=== PATIENT | female | born 1950 | race Caucasian/White ===

== ENCOUNTER 2024-03-12 06:06 | Day surgery (SDC) | payer MEDICARE, BC ==
[2024-03-11 10:54] LABS: BASOPHILS # (AUTO) 0.1 X10'3 (0-0.2); BASOPHILS % (AUTO) 0.6 % (0-1); EOSINOPHILS # (AUTO) 0.1 X10'3 (0-0.9); HEMATOCRIT 41.1 % (35.0-45.0); HEMOGLOBIN 14.3 g/dl (12.0-16.0); LYMPHOCYTES # (AUTO) 1.9 X10'3 (1.1-4.8); LYMPHOCYTES % (AUTO) 24.2 % (21-51); MEAN CORPUSCULAR HEMOGLOBIN 33.5 PG (27.0-31.0); MEAN CORPUSCULAR HGB CONC 34.7 g/dL (33.0-36.5); MEAN CORPUSCULAR VOLUME 96.6 FL (78-98); MONOCYTES # (AUTO) 0.7 X10'3 (0-0.9); NEUTROPHILS # (AUTO) 5.2 X10'3 (1.8-7.7); NEUTROPHILS % (AUTO) 65.2 % (42-75); PLATELET COUNT 203 X10'3 (140-440); RED BLOOD COUNT 4.26 X10'6 (4.20-5.60); RED CELL DISTRIBUTION WIDTH 12.5 % (11.5-14.5)
[2024-03-11 11:06] LABS: ALBUMIN 3.6 G/DL (3.4-5.0); ANION GAP 6 (8-16); APTT 24 SECONDS (22-32); BLOOD UREA NITROGEN 14 MG/DL (7-18); BUN/CREATININE RATIO 16.9 (10.0-20.0); CALCIUM 9.2 MG/DL (8.5-10.1); CHLORIDE 107 MMOL/L (99-107); CREATININE 0.83 MG/DL (0.40-0.90); GLUCOSE 94 MG/DL (70-104); POTASSIUM 4.1 MMOL/L (3.5-5.1); PROTHROMBIN TIME 10.9 SECONDS (9.0-12.0); SODIUM 142 MMOL/L (135-145); TOTAL CARBON DIOXIDE 29.4 MMOL/L (24-32); eGFR 67 ML/MIN
[2024-03-12] VITALS (16 sets, daily range): BP systolic 114–140; BP diastolic 54–70; PULSE 52–74; RESP 10–12; TEMP 98.2; O2SAT 95–100
[~2024-03-12] VITALS: Ht 160 cm; Wt 71.7 kg
[2024-03-12] MEDS ORDERED: ESOM40CA66 PO (06:52)
[2024-03-12] MEDS ORDERED: ROSU20TA73 PO (06:52)
[2024-03-12] MEDS ORDERED: FISH1CAP15 PO (06:52)
[2024-03-12] MEDS ORDERED: LEVO88TA2 PO (06:52)
[2024-03-12] MEDS ORDERED: LISI40TA13 PO (06:52)
[2024-03-12] MEDS ORDERED: METO25TA6 PO (06:52)
[2024-03-12] MEDS: diphenhydrAMINE 25mg capsule PO PRN (07:13)
[2024-03-12] MEDS: LORazepam 0.5 MG tablet PO PRN (07:13)
[2024-03-12] MEDS: normal saline 1,000 ML IV SCH (07:13)
[2024-03-12] MEDS ORDERED: LIDOcaine 1% (10mg/ml) 2ml vial ONE (07:24)
[2024-03-12] MEDS ORDERED: iohexol 350MG/ML 100ml bottle IV ONE ×2 (07:25→08:44)
[2024-03-12] MEDS ORDERED: fentaNYL/PF 50MCG/1 ML 2ML syringe ONE (07:25)
[2024-03-12] MEDS ORDERED: verapamil 2.5 mg/ml inj IV ONE (07:25)
[2024-03-12] MEDS ORDERED: iohexol 350 MG/ML 50ML vial IV ONE (07:25)
[2024-03-12] MEDS ORDERED: midazolam 1 mg/ML 2ml injection ONE (07:25)
[2024-03-12] MEDS ORDERED: heparin 1,000unit/ml 10ml vial 10 ML ONE (07:25)
[2024-03-12] MEDS ORDERED: nitroGLYCERIN 500mcg/5mL D5W 5 ML IV ONE ×3 (07:26→09:12)
[2024-03-12] MEDS ORDERED: LIDOcaine 1% 30ml preserv. free vial ONE (08:20)
[2024-03-12] MEDS ORDERED: heparin 25,000 UNIT/250ml bag 250 ML IV ONE (08:49)
[2024-03-12] MEDS ORDERED: clopidogrel 300mg tablet ONE (09:19)
[2024-03-12] MEDS ORDERED: aspirin 325mg tablet ONE (09:19)
[2024-03-12] MEDS ORDERED: normal saline 1000ml 1,000 ML IV SCH (10:10)
[2024-03-12] MEDS ORDERED: HYDROcodone/acetaminophen 5mg/325mg tablet PO PRN (10:15)
[2024-03-12] MEDS ORDERED: HYDROcodone/acetaminophen 10/325mg tab PO PRN (10:15)
--- NOTE | 2024-03-12 10:30 | NUR ---
Heparin gtt discontinued per post cath orders.
[2024-03-12] MEDS ORDERED: ASPI-1397 PO (10:49)
[2024-03-12] MEDS ORDERED: ROSU40TA PO (10:49)
[2024-03-12] MEDS ORDERED: CLOP75TA33 PO (10:49)
--- NOTE | 2024-03-12 11:29 | NUR ---
ACT 165. Notified Dr. Gordon. Per MD CORDOVA to pull right femoral sheath.
[2024-03-13] MEDS ORDERED: clopidogrel 75mg tablet PO SCH (08:00)
== END 2024-03-12 18:45 | disposition home or self-care (01) ==
LOC: SSTAY O 06:06
PROVIDERS: ATTEND Internal Medicine Cardiovascular Disease
DX: R94.39 Abnormal result of other cardiovascular function study (principal); I25.10 Atherosclerotic heart disease of native coronary artery without angina pectoris; I10 Essential (primary) hypertension; E78.5 Hyperlipidemia, unspecified; E03.9 Hypothyroidism, unspecified; K21.00 Gastro-esophageal reflux disease with esophagitis, without bleeding; F41.9 Anxiety disorder, unspecified; Z79.890 Hormone replacement therapy; Z79.899 Other long term (current) drug therapy; Z98.890 Other specified postprocedural states
CPT/HCPCS: 36415; 80048; 85025; 85347; 85610; 85730; 93005; 93458; 99152; 99153; A6258; A6402; C1725; C1751; C1874; C1894; C9600; J1644; J2001; J2250; J3010; J3490; J7030; Q0163; Q9967; Z7610; 76937; A6449

== ENCOUNTER 2024-03-31 04:05 | Emergency (ER) | payer MEDICARE, BC ==
[~2024-03-31] VITALS: Ht 160 cm; Wt 70.9 kg
[~2024-03-31 04:05] MED LIST: ASPI-1397 PO; CLOP75TA33 PO; ESOM40CA66 PO; FISH1CAP15 PO; LEVO88TA2 PO; LISI40TA13 PO; METO25TA6 PO; ROSU20TA73 PO; ROSU40TA PO
[2024-03-31] MEDS: normal saline 1000ML IV soln IVB ONE (04:25)
[2024-03-31] MEDS: nitroGLYCERIN 0.4mg/hour patch TD ONE (04:26)
[2024-03-31] MEDS: ketorolac trometh 15mg/ml vial 15 MG/ML ML IV ONE (04:33)
[2024-03-31] MEDS: HYDROmorphone 1 mg/ml syringe IV ONE (04:33)
[2024-03-31] MEDS: ondansetron/PF 4mg/2ml inj IV ONE (04:38)
[2024-03-31] MEDS: ondansetron/PF 4mg/2ml inj IV STA (04:38)
[2024-03-31] MEDS: ondansetron/PF 4mg/2ml inj IM ONE (04:38)
[2024-03-31 04:39] LABS: HEMOGLOBIN 14.4 g/dl (12.0-16.0); MEAN CORPUSCULAR HEMOGLOBIN 32.2 PG (27.0-31.0); RED BLOOD COUNT 4.47 X10'6 (4.20-5.60)
[2024-03-31 04:41] LABS: BASOPHILS # (AUTO) 0.1 X10'3 (0-0.2); BASOPHILS % (AUTO) 0.7 % (0-1); EOSINOPHILS # (AUTO) 0.1 X10'3 (0-0.9); EOSINOPHILS % (AUTO) 1.3 % (0-6); HEMATOCRIT 42.9 % (35.0-45.0); LYMPHOCYTES # (AUTO) 3.6 X10'3 (1.1-4.8); LYMPHOCYTES % (AUTO) 40.6 % (21-51); MEAN CORPUSCULAR HGB CONC 33.5 g/dL (33.0-36.5); MEAN CORPUSCULAR VOLUME 96.1 FL (78-98); MEAN PLATELET VOLUME 8.9 FL (7.4-10.4); MONOCYTES % (AUTO) 11.3 % (2-12); NEUTROPHILS # (AUTO) 4.1 X10'3 (1.8-7.7); NEUTROPHILS % (AUTO) 46.1 % (42-75); PLATELET COUNT 226 X10'3 (140-440); RED CELL DISTRIBUTION WIDTH 12.9 % (11.5-14.5)
[2024-03-31 04:51] LABS: APTT 22 SECONDS (22-32); PROTHROMBIN TIME 10.7 SECONDS (9.0-12.0)
[2024-03-31 04:52] LABS: ALANINE AMINOTRANSFERASE 22 U/L (12-78); ALBUMIN 3.9 G/DL (3.4-5.0); ALKALINE PHOSPHATASE 79 IU/L (46-116); ANION GAP 14 (8-16); ASPARTATE AMINO TRANSFERASE 20 U/L (10-37); BILIRUBIN,TOTAL 0.7 MG/DL (0.1-1.0); BLOOD UREA NITROGEN 26 MG/DL (7-18); CALCIUM 9.9 MG/DL (8.5-10.1); CHLORIDE 104 MMOL/L (99-107); CREATININE 1.37 MG/DL (0.40-0.90); GLUCOSE 123 MG/DL (70-104); POTASSIUM 3.6 MMOL/L (3.5-5.1); SODIUM 143 MMOL/L (135-145); TOTAL CARBON DIOXIDE 24.9 MMOL/L (24-32); eCRCL 30 ML/MIN; eGFR 38 ML/MIN
[2024-03-31 05:00] LABS: LIPASE 55 U/L (16-77); MAGNESIUM 1.9 MG/DL (1.5-2.4); PRO BRAIN NATRIURETIC PEPTIDE 85 PG/ML (0-125)
[2024-03-31] MEDS: mag hydrox/Alum hydrox/simeth 30ml oral suspension PO ONE (05:35)
[2024-03-31] MEDS: LIDOcaine 2% Viscous 15ml cup MM ONE (05:35)
[2024-03-31 08:28] VITALS: TEMP 98.1
[2024-03-31 08:39] VITALS: BP 114/57; PULSE 62; RESP 20; O2SAT 94
== END 2024-03-31 08:35 | disposition home or self-care (01) ==
LOC: ER 04:06
DX: K21.9 Gastro-esophageal reflux disease without esophagitis (principal); R07.89 Other chest pain; I25.10 Atherosclerotic heart disease of native coronary artery without angina pectoris; Z79.82 Long term (current) use of aspirin; Z79.899 Other long term (current) drug therapy
CPT/HCPCS: 36415; 71045; 80053; 83690; 83735; 83880; 84484; 85025; 85610; 85730; 93005; 96361; 96374; 96375; 99285; A4615; J1170; J1885; J2405; J7030